=== PATIENT | male | born 1995 | race Caucasian/White ===

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

== ENCOUNTER → 2017-10-12 | Outpatient (CLI) | payer OTHER ==
--- NOTE | 2017-10-13 11:08 | ECHOF ---
Referral Reason:R07.9 chest pain, R94.31 abnormal ekg MEASUREMENTS -------- HEIGHT: 193.0 cm WEIGHT: 84.4 kg BP: IVSd: 1.0 cm (0.6 - 1.1) LVIDd: 5.1 cm (3.9 - 5.3) LVPWd: 0.9 cm (0.6 - 1.1) IVSs: 1.3 cm LVIDs: 3.7 cm LVPWs: 1.3 cm LA Diam: 2.4 cm (2.7 - 3.8) Ao Diam: 3.2 cm (2.0 - 3.7) AV Cusp: 2.0 cm (1.5 - 2.6) LA Diam: 3.5 cm (2.7 - 3.8) MV EXCURSION: 21.866 mm (> 18.000) MV EF SLOPE: 124 mm/s (70 - 150) EPSS: 0.3 cm MV E Pernell: 1.11 m/s MV DecT: 170 ms MV A Pernell: 0.56 m/s MV E/A Ratio: 1.97 RAP: 5.00 mmHg RVSP: 16.62 mmHg FINDINGS -------- Sinus rhythm. This was a technically good study. LV size, wall thickness and systolic function are normal, with an EF greater than 55%. The left emily tricular size is normal. The right ventricle is normal in size. The left atrial size is normal. The right atrial size is normal. The aortic valve is trileaflet, and appears structurally normal. No aortic stenosis or regurgitation. The mitral valve leaflets are mildly thickened. Mild tricuspid regurgitation present. There is no evidence of pulmonary hypertension. The right v entricular systolic pressure, as measured by Doppler, is 16.62mmHg. There is no pulmonic regurgitation present. The aortic root size is normal. There is no pericardial effusion. CONCLUSIONS -------- 1. LV size, wall thickness and systolic function are normal, with an EF greater than 55%. 2. The left ventricular size is normal. 3. The right ventricle is normal in size. 4. The left atrial size is normal. 5. The right atrial size is normal. 6. The aortic valve is trileaflet, and appears structurally normal. No aortic stenosis or regurgitati on. 7. The mitral valve leaflets are mildly thickened. 8. Mild tricuspid regurgitation present. 9. There is no evidence of pulmonary hypertension. 10. The right ventricular systolic pressure, as measured by Doppler, is 16.62mmHg. 11. There is no pulmonic regurgitation present. 12. The aortic root size is normal. 13. There is no pericardial effusion. ABA TUTOR: Marta Keita RDCS
== END ==
LOC: RADECHMAIN 16:10
PROVIDERS: ATTEND Family Medicine
DX: I07.1 Rheumatic tricuspid insufficiency (principal)
CPT/HCPCS: 93306

== ENCOUNTER 2023-10-26 16:37 | Emergency (ER) | payer OTHER ==
[2023-10-26 16:40] VITALS: PULSE 88; RESP 18
[2023-10-26] MEDS: DIPH,PERTUS(ACELL)TETVAC-LF 0.5 ML VIAL IM ONE (17:10)
[2023-10-26] MEDS: LIDOCAINE 1% INJ 10MG/ML (20 ML MDV) SQ ONE (17:11)
--- NOTE | 2023-10-26 17:11 | ED ---
Wound/Laceration HPI - General Chief Complaint: Wound/Laceration Stated Complaint: Shante Miller Laceration Time Seen by Provider: 10/26/23 17:08 Source: patient, RN notes reviewed Mode of arrival: ambulatory Limitations: no limitations - History of Present Illness Initial Comments: 28-year-old male presented to the ER with a chief complaint of left fifth digit laceration. Patient states he was using a rounded knife to cut up food and accidentally hit his left fifth digit. He states he felt a "crunch". He noted a lot of blood and states the tip of his finger is "tingly". She denies any other injuries or complaints. Tetanus is not up-to-date. - Related Data Previous Rx's Medication Instructions Recorded Cephalexin [Keflex] 500 mg PO Q6HR #28 cap 09/14/16 Allergies Allergy/AdvReac Type Severity Reaction Status Date / Time No Known Allergies Allergy Verified 10/26/23 16:40 Review of Systems ROS Statement: Those systems with pertinent positive or pertinent negative responses have been documented in the HPI. ROS Other: All systems not noted in ROS Statement are negative. Past Medical History Past Medical History: No Reported History History of Any Multi-Drug Resistant Organisms: None Reported Past Surgical History: Tonsillectomy Past Psychological History: No Psychological Hx Reported Smoking Status: Vaper Past Alcohol Use History: Occasional Past Drug Use History: None Reported General Exam Limitations: no limitations General appearance: alert, in no apparent distress Respiratory exam: Present: normal lung sounds bilaterally. Absent: respiratory distress, wheezes, rales, rhonchi, stridor Cardiovascular Exam: Present: regular rate, normal rhythm, normal heart sounds. Absent: systolic murmur, diastolic murmur, rubs, gallop, clicks Extremities exam: Present: normal inspection, full ROM, normal capillary refill, other (1.7cm laceration to left fifth digit inbetween PIP and DIP joints. Minimal active bleeding. Patient has full active range of motion. Sensation intact. 2+ left radial pulse.). Absent: tenderness, pedal edema, joint swellin g, calf tenderness Skin exam: Present: warm, dry, intact, normal color. Absent: rash Course Vital Signs 10/26/23 10/26/23 16:38 18:16 Temperature 97.9 F 97.8 F Pulse Rate 88 88 Respiratory 18 18 Rate Blood Pressure 156/52 141/75 O2 Sat by Pulse 98 98 Oximetry Procedures - Laceration Laceration #1 Indication: laceration Site: hand Size (cm): 2 Description: linear Depth: simple, single layer Anesthetic Used: lidocaine 1% Anesthesia Technique: nerve block Amount (mls): 6 Pre-repair: wound explored, irrigated extensively, deep structures intact Type of Sutures: nylon Size of Sutures: 4-0 Number of Sutures: 4 Technique: simple, interrupted Patient Tolerated Procedure: well, no complications Medical Decision Making - Medical Decision Making Was pt. sent in by a medical professional or institution (, [facility], SENIOR HUMAN RESOURCES REPRESENTATIVE, urgent care, hospital, or [facility]...) When possible be specific @ -No Did you speak to anyone other than the patient for history (EMS, parent, family, police, friend...)? What history was obtained from this source @ -No Did you review nursing and triage notes (agree or disagree)? Why? @ -I reviewed and agree with nursing and triage notes Were old charts reviewed (outside hosp., previous admission, EMS record, old E KG, old radiological studies, urgent care reports/EKG's, [facility] records)? Report findings @ -No old charts were reviewed Differential Diagnosis (chest pain, altered mental status, abdominal pain women, abdominal pain men, vaginal bleeding, weakness, fever, dyspnea, syncope, headache, dizziness, GI bleed, back pain, seizure, CVA, palpatations, mental health, musculoskeletal)? @ -Laceration, abrasion, contusion, avulsion, foreign body this list is not meant to be all-inclusive EKG interpreted by me (3pts min.). @ -None X-rays interpreted by me (1pt min.). @ -Left finger x-ray interpreted by me negative for acute osseous process. No radiopaque foreign bodies. CT interpreted by me (1pt min.). @ -None done U/S interpreted by me (1pt. min.). @ -None done What testing was considered but not performed or refused? (CT, X-rays, U/S, labs)? Why? @ -None What meds were considered but not given or refused? Why? @ -None Did you discuss the management of the patient with other professionals (professionals i.e. , [facility], SENIOR HUMAN RESOURCES REPRESENTATIVE, lab, RT, psych nurse, sr. social media & mobile manager, editor map, teacher, customer service officer, embedded case manager)? Give summary @ -No Was smoking cessation discussed for >3mins.? @ -I discussed smoking cessation for greater than 3 minutes. The risk of smoking were discussed with the patient including but not limited to risks of cancer, stroke, coronary artery disease and COPD. Also discussed with patient were multiple methods of quitting smoking. Lastly we discussed the financial cost of smoking. Was critical care preformed (if so, how long)? @ -No Were there social determinants of health that impacted care today? How? (Homelessness, low income, unemployed, alcoholism, drug addiction, transportation, low edu. Level, literacy, decrease access to med. care, [facility], rehab)? @ -No Was there de-escalation of care discussed even if they declined (Discuss DNR or withdrawal of care, Hospice)? DNR status @ -No What co-morbidities impacted this encounter? (DM, HTN, Smoking, COPD, CAD, Cancer, CVA, ARF, Chemo, Hep., AIDS, mental health diagnosis, sleep apnea, morbid obesity)? @ -None Was patient admitted / discharged? Hospital course, mention meds given and route, prescriptions, significant lab abnormalities, going to OR and other pertinent info. @ -Discharge. 28-year-old male presented to the ER with a chief complaint of a laceration. History and physical exam completed. Vitals stable. Exam significant for a 1.7 cm laceration to left fifth digit overlying DIP joint with minimal active bleeding. Patient has full active range of motion of digit. Left upper extremity neurovascular intact. X-rays obtained to rule out osseous process and foreign bodies. Tetanus updated. Digital block performed for pain control, with improvement. X-rays obtained negative for acute osseous process or radiopaque foreign bodies. Laceration closed using 4 simple interrupted sutures. Patient tolerated procedure well. Advise removal in 10 to 14 days. Suture and return parameters discussed. Patient discharged in stable condition with follow-up to PCP. Patient verbally expressed understanding and agreement with care plan. Case discussed with ED attending, Dr. Zimmer. Undiagnosed new problem with uncertain prognosis? @ -No Drug Therapy requiring intensive monitoring for toxicity (Heparin, Nitro, Insulin, Cardizem)? @ -No Were any procedures done? @ -Yes Diagnosis/symptom? @ -Laceration Acute, or Chronic, or Acute on Chronic? @ -Acute Uncomplicated (without systemic symptoms) or Complicated (systemic symptoms)? @ -Uncomplicated Side effects of treatment? @ -No Exacerbation, Progression, or Severe Exacerbation? @ -No Poses a threat to life or bodily function? How? (Chest pain, USA, MD, pneumonia, PE, COPD, DKA, ARF, appy, cholecystitis, CVA, Diverticulitis, Homicidal, Suicidal, threat to staff... and all critical care pts) @ -No - Radiology Data Radiology results: report reviewed, image reviewed Disposition Clinical Impression: Laceration Disposition: HOME SELF-CARE Condition: Stable Instructions (If sedation given, give patient instructions): Care For Your Stitches (DC) Additional Instructions: Sutures removed in 10 to 14 days. Keep area clean and dry. Monitor for signs of infection including surrounding redness, purulent drainage or increase in swelling. Return to the ER for any new or worsening concerns. Is patient prescribed a controlled substance at d/c from ED?: No Referrals: Yamileth Hallman DO [Primary Care Provider] - 1-2 days Time of Disposition: 18:07
--- NOTE | 2023-10-26 17:40 | XR ---
EXAMINATION TYPE: XR finger LT DATE OF EXAM: 10/26/2023 5:28 PM CLINICAL INDICATION:Male, 28 years old with history of laceration; [facility] COMPARISON: None TECHNIQUE: XR finger LT Frontal, lateral and oblique views were obtained. FINDINGS: Soft tissue laceration involving the fifth digit volar surface. No radiopaque foreign body. Normal alignment of the visualized joints. No acute osseous pathology is identified. No evidence o f soft tissue swelling. No significant degeneration IMPRESSION: 1. Soft tissue laceration without acute osseous pathology. 2. No radiopaque foreign body.
[2023-10-26 18:18] VITALS: BP 141/75; TEMP 97.8
== END 2023-10-26 18:29 | disposition home or self-care (01) ==
LOC: EC 16:37
DX: S61.217A Laceration without foreign body of left little finger without damage to nail, initial encounter (principal); F17.290 Nicotine dependence, other tobacco product, uncomplicated; Z23 Encounter for immunization; W26.0XXA Contact with knife, initial encounter
CPT/HCPCS: 99283; 99406; 12001; 90471; 73140; 90715; J2001